=== PATIENT | male | born 1940 | race Caucasian/White ===

== ENCOUNTER 2018-04-14 21:04 | Inpatient (IN) | payer MEDICARE ==
[~2018-04-14] VITALS: Ht 170.2 cm; Wt 83.5 kg
[2018-04-14] MEDS ORDERED: LEVO25TA9 PO (21:10)
[2018-04-14] MEDS ORDERED: METO25TA6 PO (21:10)
[2018-04-14] MEDS ORDERED: CETI-102 PO (21:10)
[2018-04-14] MEDS ORDERED: LOSA50TA21 PO (21:10)
[2018-04-14] MEDS ORDERED: TRAZ-214 PO (21:10)
[2018-04-14] MEDS ORDERED: ATOR20TA PO (21:10)
[2018-04-14] MEDS ORDERED: FLUO10TA PO (21:10)
[2018-04-14] MEDS ORDERED: ASPI-1169 PO (21:10)
[2018-04-14] MEDS ORDERED: AMLO5TAB2 PO (21:10)
[2018-04-14] MEDS ORDERED: LACT1CAP73 PO (21:10)
[2018-04-14 22:00] VITALS: BP 145/69
[2018-04-14] MEDS ORDERED: MAGNESIUM HYDROXIDE 30 ML LIQUID UDC PO PRN (22:30)
[2018-04-14] MEDS ORDERED: MAG HYDROX/AL HYDROX/SIMETH 30 ML LIQUID UDC PO PRN (22:30)
[2018-04-14] MEDS: LORAZEPAM 0.5 MG TABLET PO PRN (22:54)
[2018-04-14] MEDS: ACETAMINOPHEN 325 MG TABLET PO PRN (22:54)
[2018-04-14] MEDS: TEMAZEPAM 7.5 MG CAPSULE PO PRN (23:55)
[2018-04-15 07:30] VITALS: BP 157/61
[2018-04-15] MEDS ORDERED: LEVOTHYROXINE SODIUM 25 MCG TABLET PO SCH ×2 (07:30→09:00)
[2018-04-15] MEDS ORDERED: METOPROLOL TARTRATE 25 MG TABLET PO SCH (09:00)
[2018-04-15] MEDS: CETIRIZINE HCL 10 MG TABLET PO SCH (09:14)
[2018-04-15] MEDS: METOPROLOL TARTRATE 25 MG TABLET PO SCH ×2 (09:14→20:31)
[2018-04-15] MEDS: AMLODIPINE 5 MG TABLET PO SCH (09:14)
[2018-04-15] MEDS: LOSARTAN POTASSIUM 50 MG TABLET PO SCH (09:14)
[2018-04-15] MEDS: ASPIRIN 81 MG TAB.CHEW PO SCH (09:14)
[2018-04-15] MEDS: LORAZEPAM 0.5 MG TABLET PO PRN ×2 (09:24→22:16)
[2018-04-15] MEDS ORDERED: FLUOXETINE HCL 20 MG CAPSULE PO SCH (11:30)
[2018-04-15] MEDS: FLUOXETINE HCL 10 MG CAPSULE PO SCH (12:11)
[2018-04-15] MEDS: busPIRone 5 MG TABLET PO SCH ×2 (12:11→17:00)
[2018-04-15 16:50] VITALS: BP 135/76
[2018-04-15 20:02] VITALS: BP 145/73
[2018-04-15] MEDS: MIRTAZAPINE 15 MG TABLET PO SCH (20:31)
[2018-04-15] MEDS: ATORVASTATIN 20 MG TABLET PO SCH (20:31)
[2018-04-16] MEDS: LEVOTHYROXINE SODIUM 25 MCG TABLET PO SCH (06:54)
[2018-04-16 07:30] VITALS: BP 167/57
[2018-04-16] MEDS: AMLODIPINE 5 MG TABLET PO SCH (08:28)
[2018-04-16] MEDS: METOPROLOL TARTRATE 25 MG TABLET PO SCH ×2 (08:29→20:16)
[2018-04-16] MEDS: busPIRone 5 MG TABLET PO SCH ×3 (08:29→16:47)
[2018-04-16] MEDS: CETIRIZINE HCL 10 MG TABLET PO SCH (08:29)
[2018-04-16] MEDS: ASPIRIN 81 MG TAB.CHEW PO SCH (08:29)
[2018-04-16] MEDS: FLUOXETINE HCL 10 MG CAPSULE PO SCH (08:29)
[2018-04-16] MEDS: LOSARTAN POTASSIUM 50 MG TABLET PO SCH (08:29)
[2018-04-16] MEDS: LORAZEPAM 0.5 MG TABLET PO PRN ×2 (09:38→21:43)
[2018-04-16 16:51] VITALS: BP 146/74
[2018-04-16 19:30] VITALS: BP 128/68
[2018-04-16] MEDS: ATORVASTATIN 20 MG TABLET PO SCH (20:16)
[2018-04-16] MEDS: MIRTAZAPINE 15 MG TABLET PO SCH (20:16)
[2018-04-17] MEDS: LEVOTHYROXINE SODIUM 25 MCG TABLET PO SCH (06:10)
[2018-04-17 07:30] VITALS: BP 156/62
[2018-04-17] MEDS: FLUOXETINE HCL 20 MG CAPSULE PO SCH (08:20)
[2018-04-17] MEDS: CETIRIZINE HCL 10 MG TABLET PO SCH (08:20)
[2018-04-17] MEDS: METOPROLOL TARTRATE 25 MG TABLET PO SCH ×2 (08:20→20:23)
[2018-04-17] MEDS: AMLODIPINE 5 MG TABLET PO SCH (08:21)
[2018-04-17] MEDS: LOSARTAN POTASSIUM 50 MG TABLET PO SCH (08:21)
[2018-04-17] MEDS: busPIRone 5 MG TABLET PO SCH ×3 (08:21→16:51)
[2018-04-17] MEDS: ASPIRIN 81 MG TAB.CHEW PO SCH (08:22)
[2018-04-17] MEDS ORDERED: FLUOXETINE HCL 10 MG CAPSULE PO SCH (09:00)
[2018-04-17] MEDS: LORAZEPAM 0.5 MG TABLET PO PRN ×2 (10:33→17:39)
[2018-04-17 16:08] VITALS: BP 124/54
[2018-04-17 20:14] VITALS: BP 128/71
[2018-04-17] MEDS: ATORVASTATIN 20 MG TABLET PO SCH (20:23)
[2018-04-17] MEDS: MIRTAZAPINE 15 MG TABLET PO SCH (20:23)
[2018-04-17] MEDS: TEMAZEPAM 7.5 MG CAPSULE PO PRN (21:08)
[2018-04-18] MEDS: LEVOTHYROXINE SODIUM 25 MCG TABLET PO SCH (06:31)
[2018-04-18] MEDS: LORAZEPAM 0.5 MG TABLET PO PRN ×3 (06:31→21:35)
[2018-04-18 07:30] VITALS: BP 176/76
[2018-04-18] MEDS: LOSARTAN POTASSIUM 50 MG TABLET PO SCH (09:07)
[2018-04-18] MEDS: CETIRIZINE HCL 10 MG TABLET PO SCH (09:07)
[2018-04-18] MEDS: FLUOXETINE HCL 20 MG CAPSULE PO SCH (09:07)
[2018-04-18] MEDS: busPIRone 5 MG TABLET PO SCH ×3 (09:08→17:23)
[2018-04-18] MEDS: AMLODIPINE 5 MG TABLET PO SCH (09:08)
[2018-04-18] MEDS: ASPIRIN 81 MG TAB.CHEW PO SCH (09:08)
[2018-04-18] MEDS: METOPROLOL TARTRATE 25 MG TABLET PO SCH ×2 (09:08→20:12)
[2018-04-18 15:05] VITALS: BP 172/61
[2018-04-18] MEDS: CLONIDINE HCL 0.2 MG TABLET PO PRN (15:46)
[2018-04-18 17:08] VITALS: BP 145/64
[2018-04-18] MEDS: ATORVASTATIN 20 MG TABLET PO SCH (20:12)
[2018-04-18] MEDS: MIRTAZAPINE 15 MG TABLET PO SCH (20:12)
[2018-04-18 20:20] VITALS: BP 126/69
[2018-04-18] MEDS: TEMAZEPAM 7.5 MG CAPSULE PO PRN (22:32)
[2018-04-19] MEDS: LEVOTHYROXINE SODIUM 25 MCG TABLET PO SCH (06:04)
[2018-04-19 07:30] VITALS: BP 156/71
[2018-04-19] MEDS: FLUOXETINE HCL 10 MG CAPSULE PO SCH (08:10)
[2018-04-19] MEDS: CETIRIZINE HCL 10 MG TABLET PO SCH (08:11)
[2018-04-19] MEDS: LOSARTAN POTASSIUM 50 MG TABLET PO SCH (08:11)
[2018-04-19] MEDS: METOPROLOL TARTRATE 25 MG TABLET PO SCH ×2 (08:11→20:25)
[2018-04-19] MEDS: AMLODIPINE 5 MG TABLET PO SCH (08:11)
[2018-04-19] MEDS: ASPIRIN 81 MG TAB.CHEW PO SCH (08:21)
[2018-04-19] MEDS: busPIRone 5 MG TABLET PO SCH ×3 (08:22→16:46)
[2018-04-19] MEDS ORDERED: FLUOXETINE HCL 20 MG CAPSULE PO SCH (09:00)
[2018-04-19] MEDS: LORAZEPAM 0.5 MG TABLET PO PRN ×2 (09:13→18:43)
[2018-04-19] MEDS: CLONIDINE HCL 0.2 MG TABLET PO PRN (16:26)
[2018-04-19] MEDS: MIRTAZAPINE 15 MG TABLET PO SCH (20:18)
[2018-04-19] MEDS: ATORVASTATIN 20 MG TABLET PO SCH (20:18)
[2018-04-19 20:50] VITALS: BP 121/76
[2018-04-19] MEDS: ACETAMINOPHEN 325 MG TABLET PO PRN (21:45)
[2018-04-19] MEDS: TEMAZEPAM 7.5 MG CAPSULE PO PRN (21:45)
[2018-04-20] MEDS: LORAZEPAM 0.5 MG TABLET PO PRN ×2 (02:25→10:01)
[2018-04-20] MEDS: LEVOTHYROXINE SODIUM 25 MCG TABLET PO SCH (06:32)
[2018-04-20 06:46] LABS: BASOPHILS # (AUTO) 0.1 K/uL (0.0-8.0); BASOPHILS % (AUTO) 0.8 % (0.0-2.0); EOSINOPHILS # (AUTO) 0.2 K/uL (0.0-0.7); EOSINOPHILS % (AUTO) 2.4 % (0.0-7.0); HEMATOCRIT 41.9 % (36.7-47.1); HEMOGLOBIN 14.8 g/dL (12.5-16.3); LYMPHOCYTES # (AUTO) 1.2 K/uL (20.0-40.0); LYMPHOCYTES % (AUTO) 18.6 % (20.5-51.5); MEAN CORPUSCULAR HEMOGLOBIN 30.1 uug (23.8-33.4); MEAN CORPUSCULAR HGB CONC 35 g/dL (32.5-36.3); MONOCYTES # (AUTO) 0.7 K/uL (2.0-10.0); MONOCYTES % (AUTO) 10.9 % (0.0-11.0); NEUTROPHILS # (AUTO) 4.3 K/uL (1.8-8.9); NEUTROPHILS % (AUTO) 67.3 % (38.5-71.5); PLATELET COUNT (AUTO) 107 K/uL (152-348); RED BLOOD CELL COUNT(AUTO) 4.93 MIL/uL (4.06-5.63); WHITE BLOOD COUNT (AUTO) 6.4 K/uL (3.6-10.2)
[2018-04-20 06:52] LABS: CARBON DIOXIDE 29 mmol/L (21-32); CHLORIDE 99 mmol/L (98-107); CREATININE 1.5 mg/dL (0.6-1.3); GLUCOSE 106 mg/dL (74-106); POTASSIUM 4.3 mmol/L (3.5-5.1); UREA NITROGEN, BLOOD 19 mg/dL (7-18)
[2018-04-20 07:30] VITALS: BP 159/56
[2018-04-20] MEDS: FLUOXETINE HCL 10 MG CAPSULE PO SCH (08:18)
[2018-04-20] MEDS: busPIRone 5 MG TABLET PO SCH ×3 (08:18→16:33)
[2018-04-20] MEDS: ASPIRIN 81 MG TAB.CHEW PO SCH (08:18)
[2018-04-20] MEDS: CETIRIZINE HCL 10 MG TABLET PO SCH (08:18)
[2018-04-20] MEDS ORDERED: AMLODIPINE 5 MG TABLET PO SCH (09:00)
[2018-04-20] MEDS: METOPROLOL TARTRATE 25 MG TABLET PO SCH ×2 (09:00→20:08)
[2018-04-20] MEDS: LOSARTAN POTASSIUM 50 MG TABLET PO SCH (09:00)
[2018-04-20] MEDS: AMLODIPINE 10 MG TABLET PO SCH (10:02)
[2018-04-20 15:20] VITALS: BP 146/62
[2018-04-20 20:05] VITALS: BP 132/71
[2018-04-20] MEDS: ATORVASTATIN 20 MG TABLET PO SCH (20:08)
[2018-04-20] MEDS: MIRTAZAPINE 15 MG TABLET PO SCH (20:08)
[2018-04-20 21:30] LABS: *BILIRUBIN,URIN NEGATIVE (NEGATIVE); *BLOOD, URINE NEGATIVE (NEGATIVE); *CLARITY,URINE SLIGHTLY CLOUDY (CLEAR); *COLOR,URINE YELLOW (YELLOW); *KETONES,URINE NEGATIVE (NEGATIVE); *PROTEIN,URINE NEGATIVE (NEGATIVE); *UROBILINOGEN,URINE 0.2 E.U./dl (NORMAL); LEUKOCYTE ESTERASE ,URINE NEGATIVE (NEGATIVE); NITRITE, URINE NEGATIVE (NEGATIVE); UGLUCOSE NEGATIVE (NEGATIVE)
[2018-04-20 21:35] LABS: BACTERIA,URINE NONE SEEN /HPF (NONE SEEN); RBC,URINE 0-3 /HPF (0-3); SQUAMOUS EPITHELIAL CELL,UR NONE SEEN /HPF (NONE SEEN); WBC,URINE 0-3 /HPF (0-3)
[2018-04-20] MEDS: TEMAZEPAM 7.5 MG CAPSULE PO PRN (21:49)
[2018-04-21] MEDS: LORAZEPAM 0.5 MG TABLET PO PRN ×3 (04:07→19:32)
[2018-04-21] MEDS: LEVOTHYROXINE SODIUM 25 MCG TABLET PO SCH (06:16)
[2018-04-21 07:30] VITALS: BP 155/71
[2018-04-21] MEDS: METOPROLOL TARTRATE 25 MG TABLET PO SCH (08:52)
[2018-04-21] MEDS: LOSARTAN POTASSIUM 50 MG TABLET PO SCH (08:53)
[2018-04-21] MEDS: AMLODIPINE 10 MG TABLET PO SCH (08:54)
[2018-04-21] MEDS: CETIRIZINE HCL 10 MG TABLET PO SCH (08:55)
[2018-04-21] MEDS: busPIRone 5 MG TABLET PO SCH ×3 (08:55→16:24)
[2018-04-21] MEDS: ASPIRIN 81 MG TAB.CHEW PO SCH (08:55)
[2018-04-21] MEDS: FLUOXETINE HCL 10 MG CAPSULE PO SCH (09:03)
[2018-04-21] MEDS: ACETAMINOPHEN 325 MG TABLET PO PRN ×2 (10:28→19:32)
[2018-04-21] MEDS: CLONIDINE HCL 0.2 MG TABLET PO PRN (14:59)
[2018-04-21 15:45] VITALS: BP 168/66
[2018-04-21] MEDS: MIRTAZAPINE 15 MG TABLET PO SCH (20:09)
[2018-04-21] MEDS: ATORVASTATIN 20 MG TABLET PO SCH (20:09)
[2018-04-21 20:16] VITALS: BP 131/80
[2018-04-21] MEDS: TEMAZEPAM 7.5 MG CAPSULE PO PRN (21:33)
[2018-04-22] MEDS: LEVOTHYROXINE SODIUM 25 MCG TABLET PO SCH (06:19)
[2018-04-22 07:30] VITALS: BP 156/73
[2018-04-22] MEDS: ASPIRIN 81 MG TAB.CHEW PO SCH (08:41)
[2018-04-22] MEDS: CETIRIZINE HCL 10 MG TABLET PO SCH (08:41)
[2018-04-22] MEDS: FLUOXETINE HCL 10 MG CAPSULE PO SCH (08:41)
[2018-04-22] MEDS: busPIRone 5 MG TABLET PO SCH ×3 (08:41→17:06)
[2018-04-22] MEDS: LOSARTAN POTASSIUM 50 MG TABLET PO SCH (08:42)
[2018-04-22] MEDS: AMLODIPINE 10 MG TABLET PO SCH (08:42)
[2018-04-22] MEDS: LORAZEPAM 0.5 MG TABLET PO PRN (09:37)
[2018-04-22] MEDS ORDERED: GABAPENTIN 100 MG CAPSULE PO PRN (12:30)
[2018-04-22 17:11] VITALS: BP 157/81
[2018-04-22 18:11] VITALS: BP 134/76
[2018-04-22 19:56] VITALS: BP 136/79
[2018-04-22] MEDS: ATORVASTATIN 20 MG TABLET PO SCH (20:33)
[2018-04-22] MEDS ORDERED: MIRTAZAPINE 15 MG TABLET PO SCH (21:00)
[2018-04-23] MEDS: LEVOTHYROXINE SODIUM 25 MCG TABLET PO SCH (06:19)
[2018-04-23] MEDS: AMLODIPINE 10 MG TABLET PO SCH (08:27)
[2018-04-23] MEDS: ASPIRIN 81 MG TAB.CHEW PO SCH (08:27)
[2018-04-23] MEDS: busPIRone 5 MG TABLET PO SCH ×3 (08:27→16:03)
[2018-04-23] MEDS: LOSARTAN POTASSIUM 50 MG TABLET PO SCH (08:28)
[2018-04-23] MEDS: FLUOXETINE HCL 10 MG CAPSULE PO SCH (08:28)
[2018-04-23] MEDS: CETIRIZINE HCL 10 MG TABLET PO SCH (08:28)
[2018-04-23 10:31] VITALS: BP 148/73
[2018-04-23 15:46] VITALS: BP 153/74
== END 2018-04-23 17:30 | disposition home health service (06) | DRG 885 ==
LOC: ER 21:06 → GPS 21:39
PROVIDERS: ADMIT Psychiatry & Neurology Psychosomatic Medicine; ATTEND Hospitalist
DX: F33.2 Major depressive disorder, recurrent severe without psychotic features (principal); F41.0 Panic disorder [episodic paroxysmal anxiety]; G47.00 Insomnia, unspecified; Z91.5 Personal history of self-harm; E03.9 Hypothyroidism, unspecified; Z79.899 Other long term (current) drug therapy; Z79.82 Long term (current) use of aspirin; I25.2 Old myocardial infarction; I25.10 Atherosclerotic heart disease of native coronary artery without angina pectoris; Z87.891 Personal history of nicotine dependence; K74.60 Unspecified cirrhosis of liver; Z86.19 Personal history of other infectious and parasitic diseases; F10.21 Alcohol dependence, in remission; F13.21 Sedative, hypnotic or anxiolytic dependence, in remission; Z95.5 Presence of coronary angioplasty implant and graft; I10 Essential (primary) hypertension; E86.0 Dehydration; E78.5 Hyperlipidemia, unspecified; I71.9 Aortic aneurysm of unspecified site, without rupture
CPT/HCPCS: 36415; 85025; 87086; A4663

== ENCOUNTER 2020-03-22 11:56 | Inpatient (IN) | payer MEDICARE, OTHER ==
[~2020-03-22] VITALS: Ht 172.7 cm; Wt 67.6 kg
[~2020-03-22 11:56] MED LIST: AMLO5TAB9 PO; ASPI-1169 PO; ATOR20TA PO; CETI-110 PO; LACT1CAP73 PO; LEVO25TA9 PO; LOSA50TA39 PO; METO25TA6 PO
[2020-03-22] MEDS ORDERED: HYDR-501 PO (12:23)
[2020-03-22] MEDS ORDERED: ESCI10TA PO (12:23)
[2020-03-22] MEDS ORDERED: TRAZ-257 PO (12:23)
[2020-03-22 13:21] LABS: ALANINE AMINOTRANSFERASE 20 U/L (16-63); ALKALINE PHOSPHATASE 52 U/L (50-136); ASPARTATE AMINOTRANSFERASE 21 U/L (15-37); BILIRUBIN,DIRECT 0.1 mg/dL (0.0-0.2); BILIRUBIN,TOTAL 0.6 mg/dL (0.2-1.0); CARBON DIOXIDE 28 mmol/L (21-32); CHLORIDE 100 mmol/L (98-107); CREATININE 1.1 mg/dL (0.6-1.3); ETHANOL < 3 MG/DL (0-0); GLUCOSE 110 mg/dL (74-106); POTASSIUM 4.4 mmol/L (3.5-5.1); TOTAL PROTEIN, SERUM 6.3 g/dL (6.4-8.2); UREA NITROGEN, BLOOD 20 mg/dL (7-18)
[2020-03-22 13:24] LABS: ACETAMINOPHEN < 2.0 ug/mL (10-30)
[2020-03-22 13:25] LABS: BASOPHILS # (AUTO) 0.1 K/uL (0.0-8.0); BASOPHILS % (AUTO) 1.2 % (0.0-2.0); EOSINOPHILS # (AUTO) 0.4 K/uL (0.0-0.7); EOSINOPHILS % (AUTO) 7.5 % (0.0-7.0); HEMATOCRIT 37.3 % (36.7-47.1); HEMOGLOBIN 12.5 g/dL (12.5-16.3); LYMPHOCYTES # (AUTO) 0.3 K/uL (20.0-40.0); LYMPHOCYTES % (AUTO) 6.2 % (20.5-51.5); MEAN CORPUSCULAR HEMOGLOBIN 27.9 uug (23.8-33.4); MEAN CORPUSCULAR HGB CONC 33 g/dL (32.5-36.3); MEAN CORPUSCULAR VOLUME 83.3 fL (73.0-96.2); MONOCYTES # (AUTO) 0.4 K/uL (2.0-10.0); MONOCYTES % (AUTO) 6.8 % (0.0-11.0); NEUTROPHILS # (AUTO) 4.2 K/uL (1.8-8.9); NEUTROPHILS % (AUTO) 78.3 % (38.5-71.5); PLATELET COUNT (AUTO) 143 K/uL (152-348); RED BLOOD CELL COUNT(AUTO) 4.48 MIL/uL (4.06-5.63); WHITE BLOOD COUNT (AUTO) 5.3 K/uL (3.6-10.2)
[2020-03-22 14:09] LABS: *CLARITY,URINE CLEAR (CLEAR); *COLOR,URINE YELLOW (YELLOW); *KETONES,URINE NEGATIVE (NEGATIVE); *UROBILINOGEN,URINE 0.2 E.U./dl (NORMAL); LEUKOCYTE ESTERASE ,URINE NEGATIVE (NEGATIVE); NITRITE, URINE NEGATIVE (NEGATIVE); UGLUCOSE NEGATIVE (NEGATIVE)
[2020-03-22 14:12] LABS: *BILIRUBIN,URIN 1+ (NEGATIVE); *BLOOD, URINE TRACE (NEGATIVE)
[2020-03-22 14:19] LABS: *AMPHETAMINE, URINE NEGATIVE (NEGATIVE); *BARBITURATE, URINE NEGATIVE (NEGATIVE); *CANNABINOID, URINE NEGATIVE (NEGATIVE); *COCCAINE, URINE NEGATIVE (NEGATIVE); *OPIATE, URINE NEGATIVE (NEGATIVE); *PHENCYCLIDINE SCREEN,URINE NEGATIVE (NEGATIVE)
[2020-03-22 14:23] LABS: BACTERIA,URINE FEW /HPF (NONE SEEN); RBC,URINE 0-3 /HPF (0-3); SQUAMOUS EPITHELIAL CELL,UR FEW /HPF (NONE SEEN)
[2020-03-22] MEDS ORDERED: risperiDONE 1 MG TABLET PO PRN (15:30)
[2020-03-22] MEDS ORDERED: MAG HYDROX/AL HYDROX/SIMETH 30 ML LIQUID UDC PO PRN (15:30)
[2020-03-22] MEDS ORDERED: MAGNESIUM HYDROXIDE 30 ML LIQUID UDC PO PRN (15:30)
[2020-03-22 15:41] VITALS: BP 157/58
[2020-03-22 20:00] VITALS: BP 145/80
[2020-03-22] MEDS: ATORVASTATIN 20 MG TABLET PO SCH (21:00)
[2020-03-22] MEDS: METOPROLOL TARTRATE 25 MG TABLET PO SCH (21:00)
[2020-03-22] MEDS: TEMAZEPAM 7.5 MG CAPSULE PO PRN (21:01)
[2020-03-23] MEDS: ACETAMINOPHEN 325 MG TABLET PO PRN (03:07)
[2020-03-23] MEDS: LEVOTHYROXINE SODIUM 25 MCG TABLET PO SCH (06:25)
[2020-03-23 07:30] VITALS: BP 158/58
[2020-03-23 08:02] LABS: BILIRUBIN,TOTAL 0.7 mg/dL (0.2-1.0); CREATININE 1.3 mg/dL (0.6-1.3); POTASSIUM 4.4 mmol/L (3.5-5.1); TOTAL PROTEIN, SERUM 6.3 g/dL (6.4-8.2)
[2020-03-23] MEDS: METOPROLOL TARTRATE 25 MG TABLET PO SCH ×2 (08:15→20:24)
[2020-03-23] MEDS: ASPIRIN 81 MG TAB.CHEW PO SCH (08:27)
[2020-03-23] MEDS: AMLODIPINE 5 MG TABLET PO SCH (08:27)
[2020-03-23] MEDS: hydrOXYzine HCL 25 MG TABLET PO SCH (08:27)
[2020-03-23] MEDS ORDERED: CLONIDINE HCL 0.1 MG TABLET PO PRN (10:45)
[2020-03-23 12:16] LABS: THYROID STIMULATING HORMONE 3.71 mIU/mL (0.358-3.740)
[2020-03-23] MEDS: LORAZEPAM 0.5 MG TABLET PO PRN ×2 (14:42→22:19)
[2020-03-23] MEDS: ESCITALOPRAM OXALATE 10 MG TABLET PO SCH (14:42)
[2020-03-23 17:02] VITALS: BP 151/53
[2020-03-23 20:15] VITALS: BP 149/65
[2020-03-23] MEDS: TAMSULOSIN HCL 0.4 MG CAP.SR.24H PO SCH (20:21)
[2020-03-23] MEDS: MIRTAZAPINE 15 MG TABLET PO SCH (20:21)
[2020-03-23] MEDS: ATORVASTATIN 20 MG TABLET PO SCH (20:24)
[2020-03-23] MEDS: TEMAZEPAM 7.5 MG CAPSULE PO PRN (21:06)
[2020-03-24 07:30] VITALS: BP 136/56
[2020-03-24] MEDS: AMLODIPINE 5 MG TABLET PO SCH (08:46)
[2020-03-24] MEDS: ESCITALOPRAM OXALATE 10 MG TABLET PO SCH (08:47)
[2020-03-24] MEDS: hydrOXYzine HCL 25 MG TABLET PO SCH (08:47)
[2020-03-24] MEDS: ASPIRIN 81 MG TAB.CHEW PO SCH (08:47)
[2020-03-24] MEDS: METOPROLOL TARTRATE 25 MG TABLET PO SCH ×2 (08:47→20:18)
[2020-03-24] MEDS: LEVOTHYROXINE SODIUM 25 MCG TABLET PO SCH (11:56)
[2020-03-24] MEDS: LORAZEPAM 0.5 MG TABLET PO PRN ×2 (13:19→22:34)
[2020-03-24] MEDS: TRIAMCINOLONE ACET 0.1% CREAM 15 GM TUBE TOP SCH ×2 (15:19→18:51)
[2020-03-24 16:00] VITALS: BP 134/49
[2020-03-24] MEDS: ATORVASTATIN 20 MG TABLET PO SCH (20:03)
[2020-03-24] MEDS: MIRTAZAPINE 15 MG TABLET PO SCH (20:04)
[2020-03-24] MEDS: TAMSULOSIN HCL 0.4 MG CAP.SR.24H PO SCH (20:04)
[2020-03-24 20:39] VITALS: BP 160/70
[2020-03-24] MEDS: TEMAZEPAM 7.5 MG CAPSULE PO PRN (21:08)
[2020-03-25] MEDS: LEVOTHYROXINE SODIUM 25 MCG TABLET PO SCH (07:00)
[2020-03-25 07:59] VITALS: BP 170/60
[2020-03-25] MEDS: METOPROLOL TARTRATE 25 MG TABLET PO SCH ×2 (09:12→20:27)
[2020-03-25] MEDS: ESCITALOPRAM OXALATE 10 MG TABLET PO SCH (09:13)
[2020-03-25] MEDS: hydrOXYzine HCL 25 MG TABLET PO SCH (09:13)
[2020-03-25] MEDS: AMLODIPINE 5 MG TABLET PO SCH (09:13)
[2020-03-25] MEDS: TRIAMCINOLONE ACET 0.1% CREAM 15 GM TUBE TOP SCH ×2 (09:13→16:46)
[2020-03-25] MEDS: ASPIRIN 81 MG TAB.CHEW PO SCH (09:13)
[2020-03-25] MEDS: LORAZEPAM 0.5 MG TABLET PO PRN ×3 (10:52→23:10)
[2020-03-25 11:27] LABS: BASOPHILS # (AUTO) 0.1 K/uL (0.0-8.0); BASOPHILS % (AUTO) 0.8 % (0.0-2.0); EOSINOPHILS # (AUTO) 0.4 K/uL (0.0-0.7); EOSINOPHILS % (AUTO) 6.5 % (0.0-7.0); HEMATOCRIT 34.9 % (36.7-47.1); LYMPHOCYTES # (AUTO) 0.5 K/uL (20.0-40.0); LYMPHOCYTES % (AUTO) 7.6 % (20.5-51.5); MEAN CORPUSCULAR HEMOGLOBIN 28.4 uug (23.8-33.4); MEAN CORPUSCULAR HGB CONC 35 g/dL (32.5-36.3); MEAN CORPUSCULAR VOLUME 82.3 fL (73.0-96.2); MONOCYTES # (AUTO) 0.6 K/uL (2.0-10.0); MONOCYTES % (AUTO) 10.2 % (0.0-11.0); NEUTROPHILS # (AUTO) 4.8 K/uL (1.8-8.9); NEUTROPHILS % (AUTO) 74.9 % (38.5-71.5); PLATELET COUNT (AUTO) 149 K/uL (152-348); RED BLOOD CELL COUNT(AUTO) 4.24 MIL/uL (4.06-5.63); WHITE BLOOD COUNT (AUTO) 6.4 K/uL (3.6-10.2)
[2020-03-25 11:45] LABS: BILIRUBIN,TOTAL 0.5 mg/dL (0.2-1.0); CREATININE 1.2 mg/dL (0.6-1.3); MAGNESIUM 1.9 mg/dL (1.8-2.4); PHOSPHOROUS 3.3 mg/dL (2.5-4.9); POTASSIUM 4.6 mmol/L (3.5-5.1); TOTAL PROTEIN, SERUM 6.4 g/dL (6.4-8.2)
[2020-03-25] MEDS: busPIRone 5 MG TABLET PO SCH ×2 (14:52→16:55)
[2020-03-25 15:47] VITALS: BP 157/66
[2020-03-25 20:00] VITALS: BP 126/69
[2020-03-25] MEDS: ATORVASTATIN 20 MG TABLET PO SCH (20:25)
[2020-03-25] MEDS: TRAZODONE 50 MG TABLET PO SCH (20:26)
[2020-03-25] MEDS: MIRTAZAPINE 15 MG TABLET PO SCH (20:26)
[2020-03-25] MEDS: TAMSULOSIN HCL 0.4 MG CAP.SR.24H PO SCH (20:26)
[2020-03-25 21:10] LABS: *BILIRUBIN,URIN NEGATIVE (NEGATIVE); *BLOOD, URINE NEGATIVE (NEGATIVE); *CLARITY,URINE CLEAR (CLEAR); *COLOR,URINE YELLOW (YELLOW); *KETONES,URINE NEGATIVE (NEGATIVE); *UROBILINOGEN,URINE 0.2 E.U./dl (NORMAL); LEUKOCYTE ESTERASE ,URINE NEGATIVE (NEGATIVE); NITRITE, URINE NEGATIVE (NEGATIVE); PH,URINE 6.5 (5.0-8.0); UGLUCOSE NEGATIVE (NEGATIVE)
[2020-03-25 21:16] LABS: *CREATININE,URINE 67.6 mg/dL (30-125); *URINE TOTAL PROTEIN RANDOM 17.8 mg/dL (<150/24HR)
[2020-03-25] MEDS: TEMAZEPAM 7.5 MG CAPSULE PO PRN (21:53)
[2020-03-25 21:55] LABS: BACTERIA,URINE FEW /HPF (NONE SEEN); RBC,URINE 0-3 /HPF (0-3); WBC,URINE 0-3 /HPF (0-3)
[2020-03-26] MEDS: LEVOTHYROXINE SODIUM 25 MCG TABLET PO SCH (06:43)
[2020-03-26 07:30] VITALS: BP 171/65
[2020-03-26] MEDS: hydrOXYzine HCL 25 MG TABLET PO SCH (08:00)
[2020-03-26] MEDS: TRIAMCINOLONE ACET 0.1% CREAM 15 GM TUBE TOP SCH ×2 (08:00→16:37)
[2020-03-26] MEDS: AMLODIPINE 5 MG TABLET PO SCH (08:01)
[2020-03-26] MEDS: METOPROLOL TARTRATE 25 MG TABLET PO SCH ×2 (08:01→21:09)
[2020-03-26] MEDS: ESCITALOPRAM OXALATE 10 MG TABLET PO SCH (08:01)
[2020-03-26] MEDS: ASPIRIN 81 MG TAB.CHEW PO SCH (08:01)
[2020-03-26] MEDS: busPIRone 5 MG TABLET PO SCH ×3 (08:01→16:37)
[2020-03-26] MEDS: LORAZEPAM 0.5 MG TABLET PO PRN ×3 (11:34→23:43)
[2020-03-26 15:35] VITALS: BP 157/76
[2020-03-26] MEDS ORDERED: busPIRone 5 MG TABLET PO SCH (17:00)
[2020-03-26 20:19] VITALS: BP 161/61
[2020-03-26] MEDS: ATORVASTATIN 20 MG TABLET PO SCH (21:07)
[2020-03-26] MEDS: MIRTAZAPINE 15 MG TABLET PO SCH (21:08)
[2020-03-26] MEDS: TAMSULOSIN HCL 0.4 MG CAP.SR.24H PO SCH (21:08)
[2020-03-26] MEDS: TRAZODONE 50 MG TABLET PO SCH (21:08)
[2020-03-26] MEDS: TEMAZEPAM 7.5 MG CAPSULE PO PRN (21:10)
[2020-03-27] MEDS: LEVOTHYROXINE SODIUM 25 MCG TABLET PO SCH (06:35)
[2020-03-27 07:30] VITALS: BP 167/61
[2020-03-27] MEDS: ESCITALOPRAM OXALATE 10 MG TABLET PO SCH (08:48)
[2020-03-27] MEDS: METOPROLOL TARTRATE 25 MG TABLET PO SCH ×2 (08:49→20:04)
[2020-03-27] MEDS: AMLODIPINE 5 MG TABLET PO SCH (08:49)
[2020-03-27] MEDS: ASPIRIN 81 MG TAB.CHEW PO SCH (08:50)
[2020-03-27] MEDS: TRIAMCINOLONE ACET 0.1% CREAM 15 GM TUBE TOP SCH ×2 (08:50→16:49)
[2020-03-27] MEDS: busPIRone 5 MG TABLET PO SCH ×3 (08:50→16:49)
[2020-03-27] MEDS: hydrOXYzine HCL 25 MG TABLET PO SCH (08:50)
[2020-03-27] MEDS: LORAZEPAM 0.5 MG TABLET PO PRN ×3 (11:39→23:58)
[2020-03-27 16:00] VITALS: BP 179/61
[2020-03-27] MEDS: ATORVASTATIN 20 MG TABLET PO SCH (20:01)
[2020-03-27] MEDS: TRAZODONE 50 MG TABLET PO SCH (20:02)
[2020-03-27] MEDS: TAMSULOSIN HCL 0.4 MG CAP.SR.24H PO SCH (20:02)
[2020-03-27] MEDS: MIRTAZAPINE 15 MG TABLET PO SCH (20:02)
[2020-03-27] MEDS: TEMAZEPAM 7.5 MG CAPSULE PO PRN (20:59)
[2020-03-27 21:06] VITALS: BP 161/78
[2020-03-28] MEDS: LEVOTHYROXINE SODIUM 25 MCG TABLET PO SCH (06:20)
[2020-03-28 07:30] VITALS: BP 150/48
[2020-03-28] MEDS: METOPROLOL TARTRATE 25 MG TABLET PO SCH ×2 (09:24→20:12)
[2020-03-28] MEDS: busPIRone 5 MG TABLET PO SCH ×3 (09:24→17:25)
[2020-03-28] MEDS: AMLODIPINE 5 MG TABLET PO SCH (09:24)
[2020-03-28] MEDS: ASPIRIN 81 MG TAB.CHEW PO SCH (09:24)
[2020-03-28] MEDS: ESCITALOPRAM OXALATE 10 MG TABLET PO SCH (09:24)
[2020-03-28] MEDS: hydrOXYzine HCL 25 MG TABLET PO SCH (09:25)
[2020-03-28] MEDS: TRIAMCINOLONE ACET 0.1% CREAM 15 GM TUBE TOP SCH ×2 (09:25→17:25)
[2020-03-28] MEDS: LORAZEPAM 0.5 MG TABLET PO PRN ×2 (12:16→18:04)
[2020-03-28 15:49] VITALS: BP 157/49
[2020-03-28] MEDS: MIRTAZAPINE 15 MG TABLET PO SCH (20:11)
[2020-03-28] MEDS: TAMSULOSIN HCL 0.4 MG CAP.SR.24H PO SCH (20:12)
[2020-03-28] MEDS: TRAZODONE 50 MG TABLET PO SCH (20:12)
[2020-03-28] MEDS: ATORVASTATIN 20 MG TABLET PO SCH (20:12)
[2020-03-28 20:32] VITALS: BP 144/52
[2020-03-28] MEDS: TEMAZEPAM 7.5 MG CAPSULE PO PRN (21:04)
[2020-03-29] MEDS: LEVOTHYROXINE SODIUM 25 MCG TABLET PO SCH (06:07)
[2020-03-29 07:08] LABS: A/G RATIO 1.7 (0.7-1.7); ALBUMIN 3.6 g/dL (2.9-4.4); ALPHA-1-GLOBULIN 0.2 g/dL (0.0-0.4); ALPHA-2-GLOBULIN 0.6 g/dL (0.4-1.0); BETA GLOBULIN 0.7 g/dL (0.7-1.3); GAMMA GLOBULIN 0.6 g/dL (0.4-1.8); GLOBULIN, TOTAL 2.1 g/dL (2.2-3.9); M-SPIKE Not Observed g/dL (Not Observed)
[2020-03-29 07:30] VITALS: BP 129/66
[2020-03-29] MEDS: busPIRone 5 MG TABLET PO SCH ×3 (08:35→16:49)
[2020-03-29] MEDS: hydrOXYzine HCL 25 MG TABLET PO SCH (08:35)
[2020-03-29] MEDS: ASPIRIN 81 MG TAB.CHEW PO SCH (08:35)
[2020-03-29] MEDS: ESCITALOPRAM OXALATE 10 MG TABLET PO SCH (08:35)
[2020-03-29] MEDS: METOPROLOL TARTRATE 25 MG TABLET PO SCH ×2 (08:36→20:15)
[2020-03-29] MEDS: AMLODIPINE 5 MG TABLET PO SCH (08:36)
[2020-03-29] MEDS: TRIAMCINOLONE ACET 0.1% CREAM 15 GM TUBE TOP SCH ×2 (08:36→16:49)
[2020-03-29] MEDS: LORAZEPAM 0.5 MG TABLET PO PRN ×2 (14:21→22:38)
[2020-03-29 15:30] VITALS: BP 148/45
[2020-03-29] MEDS: ATORVASTATIN 20 MG TABLET PO SCH (20:07)
[2020-03-29] MEDS: TAMSULOSIN HCL 0.4 MG CAP.SR.24H PO SCH (20:07)
[2020-03-29] MEDS: TRAZODONE 50 MG TABLET PO SCH (20:15)
[2020-03-29] MEDS: MIRTAZAPINE 15 MG TABLET PO SCH (20:16)
[2020-03-29 20:25] VITALS: BP 142/61
[2020-03-30] MEDS: LEVOTHYROXINE SODIUM 25 MCG TABLET PO SCH (06:33)
[2020-03-30 07:48] VITALS: BP 154/56
[2020-03-30] MEDS: busPIRone 5 MG TABLET PO SCH ×3 (09:14→16:48)
[2020-03-30] MEDS: ASPIRIN 81 MG TAB.CHEW PO SCH (09:14)
[2020-03-30] MEDS: hydrOXYzine HCL 25 MG TABLET PO SCH (09:15)
[2020-03-30] MEDS: ESCITALOPRAM OXALATE 10 MG TABLET PO SCH (09:15)
[2020-03-30] MEDS: AMLODIPINE 5 MG TABLET PO SCH (09:15)
[2020-03-30] MEDS: TRIAMCINOLONE ACET 0.1% CREAM 15 GM TUBE TOP SCH ×2 (09:16→16:48)
[2020-03-30] MEDS: METOPROLOL TARTRATE 25 MG TABLET PO SCH ×2 (09:16→20:25)
[2020-03-30 15:14] VITALS: BP 159/56
[2020-03-30 20:17] VITALS: BP 137/68
[2020-03-30] MEDS: TRAZODONE 50 MG TABLET PO SCH (20:25)
[2020-03-30] MEDS: ATORVASTATIN 20 MG TABLET PO SCH (20:25)
[2020-03-30] MEDS: TAMSULOSIN HCL 0.4 MG CAP.SR.24H PO SCH (20:25)
[2020-03-30] MEDS: MIRTAZAPINE 15 MG TABLET PO SCH (21:04)
[2020-03-30] MEDS: LORAZEPAM 0.5 MG TABLET PO PRN (23:04)
[2020-03-31] MEDS: LEVOTHYROXINE SODIUM 25 MCG TABLET PO SCH (06:10)
[2020-03-31 07:30] VITALS: BP 142/48
[2020-03-31] MEDS: ESCITALOPRAM OXALATE 10 MG TABLET PO SCH (08:01)
[2020-03-31] MEDS: hydrOXYzine HCL 25 MG TABLET PO SCH (08:01)
[2020-03-31] MEDS: TRIAMCINOLONE ACET 0.1% CREAM 15 GM TUBE TOP SCH ×2 (08:01→16:15)
[2020-03-31] MEDS: ASPIRIN 81 MG TAB.CHEW PO SCH (08:01)
[2020-03-31] MEDS: busPIRone 5 MG TABLET PO SCH ×3 (08:02→16:06)
[2020-03-31] MEDS: AMLODIPINE 5 MG TABLET PO SCH (08:02)
[2020-03-31] MEDS: METOPROLOL TARTRATE 25 MG TABLET PO SCH ×2 (08:02→20:30)
[2020-03-31] MEDS: ARIPIPRAZOLE 2 MG TABLET PO SCH ×2 (12:19→16:06)
[2020-03-31] MEDS: LORAZEPAM 0.5 MG TABLET PO PRN ×2 (14:05→21:31)
[2020-03-31 16:00] VITALS: BP 116/45
[2020-03-31] MEDS: TAMSULOSIN HCL 0.4 MG CAP.SR.24H PO SCH (20:30)
[2020-03-31] MEDS: MIRTAZAPINE 15 MG TABLET PO SCH (20:30)
[2020-03-31] MEDS: TRAZODONE 50 MG TABLET PO SCH (20:30)
[2020-03-31] MEDS: ATORVASTATIN 20 MG TABLET PO SCH (20:31)
[2020-03-31 20:42] VITALS: BP 101/47
[2020-03-31] MEDS: ACETAMINOPHEN 325 MG TABLET PO PRN (21:30)
[2020-04-01] MEDS: LEVOTHYROXINE SODIUM 25 MCG TABLET PO SCH (06:23)
[2020-04-01 07:57] VITALS: BP 135/52
[2020-04-01] MEDS: busPIRone 5 MG TABLET PO SCH ×3 (09:07→16:15)
[2020-04-01] MEDS: AMLODIPINE 5 MG TABLET PO SCH (09:07)
[2020-04-01] MEDS: ESCITALOPRAM OXALATE 10 MG TABLET PO SCH (09:07)
[2020-04-01] MEDS: ASPIRIN 81 MG TAB.CHEW PO SCH (09:07)
[2020-04-01] MEDS: hydrOXYzine HCL 25 MG TABLET PO SCH (09:08)
[2020-04-01] MEDS: TRIAMCINOLONE ACET 0.1% CREAM 15 GM TUBE TOP SCH ×2 (09:09→16:18)
[2020-04-01] MEDS: ARIPIPRAZOLE 2 MG TABLET PO SCH ×3 (11:26→16:15)
[2020-04-01] MEDS: METOPROLOL TARTRATE 25 MG TABLET PO SCH ×2 (11:27→20:16)
[2020-04-01 16:14] VITALS: BP 123/53
[2020-04-01] MEDS: TAMSULOSIN HCL 0.4 MG CAP.SR.24H PO SCH (20:16)
[2020-04-01] MEDS: MIRTAZAPINE 15 MG TABLET PO SCH (20:16)
[2020-04-01] MEDS: ATORVASTATIN 20 MG TABLET PO SCH (20:17)
[2020-04-01] MEDS: TRAZODONE 50 MG TABLET PO SCH (20:17)
[2020-04-01 21:18] VITALS: BP 116/58
[2020-04-02] MEDS: LORAZEPAM 0.5 MG TABLET PO PRN (02:38)
[2020-04-02] MEDS: LEVOTHYROXINE SODIUM 25 MCG TABLET PO SCH (06:05)
[2020-04-02 07:30] VITALS: BP 147/45
[2020-04-02] MEDS: hydrOXYzine HCL 25 MG TABLET PO SCH (08:29)
[2020-04-02] MEDS: ASPIRIN 81 MG TAB.CHEW PO SCH (08:29)
[2020-04-02] MEDS: ESCITALOPRAM OXALATE 10 MG TABLET PO SCH (08:29)
[2020-04-02] MEDS: busPIRone 5 MG TABLET PO SCH ×2 (08:29→12:12)
[2020-04-02] MEDS: ARIPIPRAZOLE 2 MG TABLET PO SCH (08:29)
[2020-04-02] MEDS: METOPROLOL TARTRATE 25 MG TABLET PO SCH (08:30)
[2020-04-02 08:31] VITALS: BP 147/45
[2020-04-02] MEDS: TRIAMCINOLONE ACET 0.1% CREAM 15 GM TUBE TOP SCH (08:31)
[2020-04-02] MEDS: AMLODIPINE 5 MG TABLET PO SCH (08:31)
[2020-04-02] MEDS ORDERED: ARIPIPRAZOLE 2 MG TABLET PO SCH ×2 (17:00→21:00)
== END 2020-04-02 13:45 | DRG 880 ==
LOC: ER 12:00 → GPS 14:43
PROVIDERS: ADMIT Psychiatry & Neurology Psychosomatic Medicine; ATTEND Internal Medicine
DX: F41.1 Generalized anxiety disorder (principal); N17.0 Acute kidney failure with tubular necrosis; F33.2 Major depressive disorder, recurrent severe without psychotic features; R45.851 Suicidal ideations; F23 Brief psychotic disorder; Z91.5 Personal history of self-harm; F42.9 Obsessive-compulsive disorder, unspecified; E78.5 Hyperlipidemia, unspecified; E03.9 Hypothyroidism, unspecified; I10 Essential (primary) hypertension; I25.10 Atherosclerotic heart disease of native coronary artery without angina pectoris; Z87.891 Personal history of nicotine dependence; N40.0 Benign prostatic hyperplasia without lower urinary tract symptoms; I25.2 Old myocardial infarction; Z72.89 Other problems related to lifestyle
CPT/HCPCS: 36415; 51702; 80307; 80329; 83550; 83735; 83970; 84100; 84153; 84155; 84156; 84165; 84300; 84443; 85025; 87086; 93005; A4663; C1758; G0480; G0480-TC; U0003-CS